=== PATIENT | female | born 1990 | race Caucasian/White ===

== ENCOUNTER 2017-08-24 04:59 | Inpatient (IN) | payer MEDICAID ==
[2017-08-24] MEDS ORDERED: Sodium Chloride 0.9% 10 ML Syringe FLUSH PRN (07:23)
[2017-08-24] MEDS: Lactated Ringers 1,000 ML IV SCH ×3 (08:11→09:25)
[2017-08-24] MEDS ORDERED: fentaNYL 100 MCG/2 ML SDV ONE (08:40)
--- NOTE | 2017-08-24 08:48 | PCM.PREANE ---
Preanesthetic Assessment - Anesthesia/Transfusion/Family Hx Anesthesia History: Prior Anesthesia Without Reaction Family History of Anesthesia Reaction: No Transfusion History: No Prior Transfusion(s) - Review of Systems General: No Symptoms Pulmonary: Cough (smoker 1ppd) Cardiovascular: No Symptoms Gastrointestinal: No Symptoms Neurological: Pre-Existing Deficit (Back pain from fall off of truck, heavy lifting at work. ) Other: Reports: None - Physical Assessment Respiratory Rate: 18 Vital Signs: Last Vital Signs Temp 36.8 C 08/24/17 07:15 Pulse 80 08/24/17 07:15 Resp 18 08/24/17 07:15 BP 119/44 L 08/24/17 07:15 Pulse Ox Height: 1.65 m Weight: 73.346 kg ASA Class: 2 Mental Status: Alert & Oriented x3 Airway Class: Mallampati = 1 Dentition: Reports: Normal Dentition Thyro-Mental Finger Breadths: 3 Mouth Opening Finger Breadths: 3 ROM/Head Extension: Full Lungs: Clear to Auscultation, Normal Respiratory Effort, Decreased Breath Sounds Cardiovascular: Regular Rate, Regular Rhythm - Lab Values: Laboratory Last Values WBC 14.65 K/mm3 (3.98-10.04) H 08/24/17 07:35 RBC 4.14 M/mm3 (3.98-5.22) 08/24/17 07:35 Hgb 13.2 gm/L (11.2-15.7) 08/24/17 07:35 Hct 38.2 % (34.1-44.9) 08/24/17 07:35 MCV 92.3 fl (79.4-94.8) 08/24/17 07:35 MCH 31.9 pg (25.6-32.2) 08/24/17 07:35 MCHC 34.6 g/dl (32.2-35.5) 08/24/17 07:35 RDW Std Deviation 45.1 fL (36.4-46.3) 08/24/17 07:35 Plt Count 213 K/mm3 (182-369) 08/24/17 07:35 MPV 10.6 fl (9.4-12.3) 08/24/17 07:35 Neut % (Auto) 72.2 % (34.0-71.1) H 08/24/17 07:35 Lymph % (Auto) 20.3 % (19.3-51.7) 08/24/17 07:35 [place] % (Auto) 5.8 % (4.7-12.5) 08/24/17 07:35 Eos % (Auto) 1.0 (0.7-5.8) 08/24/17 07:35 Baso % (Auto) 0.2 % (0.1-1.2) 08/24/17 07:35 Neut # (Auto) 10.57 K/mm3 (1.56-6.13) H 08/24/17 07:35 Lymph # (Auto) 2.98 K/mm3 (1.18-3.74) 08/24/17 07:35 [place] # (Auto) 0.85 K/mm3 (0.24-0.36) H 08/24/17 07:35 Eos # (Auto) 0.15 K/mm3 (0.04-0.36) 08/24/17 07:35 Baso # (Auto) 0.03 K/mm3 (0.01-0.08) 08/24/17 07:35 Blood Type A POSITIVE 08/24/17 07:35 Gel Antibody Screen Negative 08/24/17 07:35 - Allergies Allergies/Adverse Reactions: Allergies Allergy/AdvReac Type Severity Reaction Status Date / Time amoxicillin [Amoxicillin] Allergy Rash Verified 08/24/17 07:27 cephalexin Allergy Swelling Verified 08/24/17 07:29 iodine Allergy Rash Verified 08/24/17 07:27 levonorgestrel [From Mirena] Allergy Rash Verified 08/24/17 07:27 Penicillins Allergy Rash Verified 08/24/17 07:27 Sulfa (Sulfonamide Allergy Itching Verified 08/24/17 07:27 Antibiotics) - Acknowledgements Anesthesia Type Planned: Epidural Pt an Appropriate Candidate for the Planned Anesthesia: Yes Alternatives and Risks of Anesthesia Discussed w Pt/Guardian: Yes Pt/Guardian Understands and Agrees with Anesthesia Plan: Yes PreAnesthesia Questionnaire - Past Health History Medical/Surgical History: Denies Medical/Surgical History Gastrointestinal History: Reports: Other (See Below) Other Gastrointestinal History: abdominal wall hernia [employer] History: Reports: , Spontaneous , Other (See Below) Other OB/BYN History: abnormal pap 2007 Musculoskeletal History: Reports: Other (See Below) Other Musculoskeletal History: hip dysplasia - Infectious Disease History Infectious Disease History: Reports: Chicken Pox - Past Surgical History HEENT Surgical History: Reports: Tonsillectomy - SUBSTANCE USE Smoking Status *Q: Current Every Day Smoker Tobacco Use Within Last Twelve Months: Cigarettes Recreational Drug Use History: No - HOME MEDS Home Medications: Home Meds Vit/Iron Fumarate/FA [ Vitamin Tablet] 1 each PO DAILY [History] Fish Oil/[place]-3 Fatty Acids [Fish Oil] 500 mg PO 08/24/17 [History] Folic Acid 0.8 mg PO 08/24/17 [History] - CURRENT (IN HOUSE) MEDS Current Meds: Current Medications Lactated Ringer's (Ringers, Lactated) 1,000 mls @ 100 mls/hr IV ASDIRECTED MLILER Last Admin: 08/24/17 08:11 Dose: 999 mls/hr Oxytocin 20 unit/ Lactated (Ringer's) 1,002 mls @ 500 mls/hr IV TITRATE MILLER; Protocol Sodium Chloride (Saline Flush) 10 ml FLUSH ASDIRECTED PRN PRN Reason: Keep Vein Open Discontinued Medications Fentanyl (Sublimaze) Confirm Administered Dose 100 mcg .ROUTE .STK-MED ONE Stop: 08/24/17 08:41
[2017-08-24] MEDS ORDERED: diphenhydrAMINE 50 MG/ML SDV IVPUSH PRN (09:10)
[2017-08-24] MEDS ORDERED: Ondansetron 4 MG/2 ML SDV IVPUSH PRN (09:10)
[2017-08-24] MEDS ORDERED: ePHEDrine 50 MG/ML SDV IVPUSH PRN (09:10)
[2017-08-24] MEDS ORDERED: fentaNYL 100 MCG/2 ML SDV EPIDUR PRN (09:10)
[2017-08-24] MEDS ORDERED: Bupivacaine/fentaNYL/NS 100 ML Bag EPIDUR SCH (09:15)
--- NOTE | 2017-08-24 09:40 | PCM.LDHP ---
L&D History of Present Illness - General Date of Service: 08/24/17 Admit Problem/Dx: Patient Status Order with Admit Dx/Problem 08/24/17 07:23 Patient Status [ADT] Routine Admission Diagnosis/Problem Admission Diagnosis/Problem Source of Information: Patient History Limitations: Reports: No Limitations - History of Present Illness Introduction:: 27-year-old JEISON 08/22/17 estimated gestational age. 40 weeks and 2 days. Presented to labor and delivery complaining of contractions. Group B strep is negative. Patient did have a history of treatment for bacterial vaginosis. Blood type A+ antibody screen negative on 01/30/17 hemoglobin hematocrit 15.1/42.2 platelets 214,000. Rubella immune. Serology nonreactive. Gardnerella vaginalis collected on 01/30/17. Hepatitis B surface antigen and HIV negative. Chlamydia and GC probe negative. As noted above group B strep negative on 07/25/17. Plan delivery. Location, : Reports: Abdomen Quality: Reports: Ache, Pressure Pain Score: 8 Improves with: Reports: None Worsens with: Reports: None Associated Symptoms: Reports: N - Related Data Allergies/Adverse Reactions: Allergies Allergy/AdvReac Type Severity Reaction Status Date / Time amoxicillin [Amoxicillin] Allergy Rash Verified 08/24/17 09:17 cephalexin Allergy Swelling Verified 08/24/17 09:17 iodine Allergy Rash Verified 08/24/17 09:17 levonorgestrel [From Mirena] Allergy Rash Verified 08/24/17 09:17 Penicillins Allergy Rash Verified 08/24/17 09:17 Sulfa (Sulfonamide Allergy Itching Verified 08/24/17 09:17 Antibiotics) Home Medications: Home Meds Vit/Iron Fumarate/FA [ Vitamin Tablet] 1 each PO DAILY [History] Fish Oil/[place]-3 Fatty Acids [Fish Oil] 500 mg PO 08/24/17 [History] Folic Acid 0.8 mg PO 08/24/17 [History] Past Medical History - Past Health History Medical/Surgical History: Denies Medical/Surgical History Gastrointestinal History: Reports: Other (See Below) Other Gastrointestinal History: abdominal wall hernia [employer] History: Reports: , Spontaneous , Other (See Below) Other OB/BYN History: abnormal pap 2006 Musculoskeletal History: Reports: Other (See Below) Other Musculoskeletal History: hip dysplasia - Infectious Disease History Infectious Disease History: Reports: Chicken Pox - Past Surgical History HEENT Surgical History: Reports: Tonsillectomy Social & Family History - Tobacco Use Smoking Status *Q: Current Every Day Smoker Years of Tobacco use: 15 Packs/Tins Daily: 1 - Recreational Drug Use Recreational Drug Use: No H&P Review of Systems - Review of Systems: Review Of Systems: See Below General: Reports: No Symptoms HEENT: Reports: No Symptoms Pulmonary: Reports: No Symptoms Cardiovascular: Reports: No Symptoms Gastrointestinal: Reports: No Symptoms Genitourinary: Reports: No Symptoms Musculoskeletal: Reports: No Symptoms Skin: Reports: No Symptoms Psychiatric: Reports: No Symptoms Neurological: Reports: No Symptoms Hematologic/Lymphatic: Reports: No Symptoms Immunologic: Reports: No Symptoms L&D Exam - Exam Exam: See Below - Vital Signs Vital Signs: Last Vital Signs Temp 98.3 F 08/24/17 07:15 Pulse 80 08/24/17 07:15 Resp 18 08/24/17 08:48 BP 119/44 L 08/24/17 07:15 Pulse Ox Weight: 161 lb 11.2 oz - OB Specific Fundal Height In cm: 39 Contraction Duration (sec): 60 Contraction Frequency (min): 3 Contraction Intensity: Moderate to Strong Movement: Active Heart Tones: Present Heart Tones per Min: 135 Heart Rate (FHR) Variability: Moderate (6-25 bmp) Presentation: Vertex - Burch Score Burch Score Cervix Position: Anterior Burch Score Consistency: Soft Burch Score Effacement: >80% Burch Score Dilation: > 5 cm Burch Score Infant's Station: -1 ,0 Burch Score Total: 12 - Exam General: Alert, Oriented HEENT: Conjunctiva Clear, EACs Clear, Mucosa Moist & [place], PERRLA Neck: Supple, Trachea Midline Lungs: Clear to Auscultation, Normal Respiratory Effort Cardiovascular: Regular Rate, Regular Rhythm GI/Abdominal Exam: Normal Bowel Sounds, Soft, Non-Tender, No Organomegaly, No Distention, No Abnormal Bruit, No Mass, Pelvis Stable Genitourinary: Normal external exam, Normal bimanual exam, Normal speculum exam Extremities: Normal Inspection, Normal Range of Motion, Non-Tender, No Pedal Edema, Normal Capillary Refill Skin: Warm, Dry, Intact Neurological: Cranial Nerves Intact, Reflexes Equal Bilateral Psychiatric: Alert, Normal Affect, Normal Mood - Patient Data Lab Results Last 24 hrs: Laboratory Results - last 24 hr 08/24/17 08/24/17 Range/Units 07:35 07:35 WBC 14.65 H (3.98-10.04) K/mm3 RBC 4.14 (3.98-5.22) M/mm3 Hgb 13.2 (11.2-15.7) gm/L Hct 38.2 (34.1-44.9) % MCV 92.3 (79.4-94.8) fl MCH 31.9 (25.6-32.2) pg MCHC 34.6 (32.2-35.5) g/dl RDW Std Deviation 45.1 (36.4-46.3) fL Plt Count 213 (182-369) K/mm3 MPV 10.6 (9.4-12.3) fl Neut % (Auto) 72.2 H (34.0-71.1) % Lymph % (Auto) 20.3 (19.3-51.7) % [place] % (Auto) 5.8 (4.7-12.5) % Eos % (Auto) 1.0 (0.7-5.8) Baso % (Auto) 0.2 (0.1-1.2) % Neut # (Auto) 10.57 H (1.56-6.13) K/mm3 Lymph # (Auto) 2.98 (1.18-3.74) K/mm3 [place] # (Auto) 0.85 H (0.24-0.36) K/mm3 Eos # (Auto) 0.15 (0.04-0.36) K/mm3 Baso # (Auto) 0.03 (0.01-0.08) K/mm3 Blood Type A POSITIVE Gel Antibody Screen Negative Result Diagrams: 08/24/17 07:35 - Problem List (1) 40 weeks gestation of SNOMED Code(s): 47474215 ICD Code: Z3A.40 - 40 WEEKS GESTATION OF Status: Acute Current Visit: Yes Problem List Initiated/Reviewed/Updated: No Orders Last 24hrs: Active Orders 24 hr Category Date Time Status Patient Status [ADT] Routine ADT 08/24/17 07:23 Active Activity as Tolerated [RC] PFP Care 08/24/17 07:23 Active Communication Order [RC] ASDIRECTED Care 08/24/17 07:23 Active Heart Tones [RC] ASDIRECTED Care 08/24/17 07:24 Active Non Stress Test [ Non Stress Test] [RC] PER UNIT Care 08/24/17 07:49 Active ROUTINE Notify Provider [RC] ASDIRECTED Care 08/24/17 09:10 Active Notify Provider [RC] PFP Care 08/24/17 07:23 Active Notify Provider [RC] PRN Care 08/24/17 07:23 Active Peripheral IV Care [RC] . DIRECTED Care 08/24/17 07:24 Active Vital Signs [RC] PER UNIT ROUTINE Care 08/24/17 07:23 Active Clear Liquid Diet [DIET] Diet 08/24/17 Breakfast Active Bupivacaine/fentaNYL/NS [fentaNYL/Bupivacaine/NS 2 MCG- Med 08/24/17 09:15 Active 0.125% 100 ML] 100 ml EPIDUR ASDIRECTED Lactated Ringers [Ringers, Lactated] 1,000 ml Med 08/24/17 07:30 Active IV ASDIRECTED Ondansetron [Zofran] Med 08/24/17 09:10 Active 4 mg IVPUSH ONETIME PRN Oxytocin [Pitocin] 20 unit Med 08/24/17 07:30 Active Lactated Ringers [Ringers, Lactated] 1,000 ml IV TITRATE Sodium Chloride 0.9% [Saline Flush] Med 08/24/17 07:23 Active 10 ml FLUSH ASDIRECTED PRN diphenhydrAMINE [Benadryl] Med 08/24/17 09:10 Active 25 mg IVPUSH Q6H PRN ePHEDrine [ePHEDrine Sulfate] Med 08/24/17 09:10 Active 5 mg IVPUSH ASDIRECTED PRN fentaNYL [Sublimaze] Med 08/24/17 09:10 Active 100 mcg EPIDUR ONETIME PRN Electronic Heart Tones Ext w TOCO [WOMSER] Oth 08/24/17 07:23 Ordered Routine Electronic Heart Tones Internal [WOMSER] Per Unit Oth 08/24/17 07:23 Ordered Routine Peripheral IV Insertion Adult [OM.PC] Routine Oth 08/24/17 07:23 Ordered Resuscitation Status Routine Resus Stat 08/24/17 07:23 Ordered Medication Orders Diphenhydramine HCl (Benadryl) 25 mg IVPUSH Q6H PRN PRN Reason: Pruritis Ephedrine Sulfate (Ephedrine Sulfate) 5 mg IVPUSH ASDIRECTED PRN PRN Reason: Hypotension Fentanyl (Sublimaze) 100 mcg EPIDUR ONETIME PRN PRN Reason: Pain Fentanyl/Bupivacaine HCl (Fentanyl/Bupivacaine/Ns 2 Mcg-0.125% 100 Ml) 100 ml EPIDUR ASDIRECTED MILLER Lactated Ringer's (Ringers, Lactated) 1,000 mls @ 100 mls/hr IV ASDIRECTED MILLER Last Admin: 08/24/17 09:25 Dose: 100 mls/hr Infusion: 08/24/17 09:25 Dose: 999 mls/hr Admin: 08/24/17 08:50 Dose: 999 mls/hr Infusion: 08/24/17 08:50 Dose: 999 mls/hr Admin: 08/24/17 08:11 Dose: 999 mls/hr Oxytocin 20 unit/ Lactated (Ringer's) 1,002 mls @ 500 mls/hr IV TITRATE MILLER; Protocol Ondansetron HCl (Zofran) 4 mg IVPUSH ONETIME PRN PRN Reason: Nausea/Vomiting Sodium Chloride (Saline Flush) 10 ml FLUSH ASDIRECTED PRN PRN Reason: Keep Vein Open Assessment/Plan Comment:: Plan delivery.
[2017-08-24] MEDS ORDERED: Bupivacaine 0.25% 10 ML SDV ONE (10:00)
--- NOTE | 2017-08-24 11:53 | PCM.DEL ---
L & D Note - General Info Date of Service: 08/24/17 Mother's Due Date: 08/22/17 - Delivery Note Labor: Spontaneous Delivery Outcome: Livebirth (Female liveborn 1133 hrs. on Saturday08/24/17 left occiput anterior under epidural anesthesia no episiotomy no lacerations weight 30/1/50 grams 6 pounds 15.1 ounces Apgars 8/9 per patient's request allowed umbilical pulsation to subside before cutting cord.) Delivery Method: Spontaneous Vaginal Delivery-Single Delivery Mode: Spontaneous Presentation: Left Occiput Anterior (ASHLEY) Nuchal Cord: Present (1 reduced over the head light meconium-stained amnionic fluid) Prep: Other (Water) Anesthesia Type: Epidural (Bladder drained of approximately 300 mL of urine prior to delivery.) Amniotic Fluid Description: Meconium Stained (Lightly meconium-stained) Episiotomy Type: None Laceration: None Placenta: Intact, Spontaneous (Delivered Saturday08/24/17 at 1140 hrs. Three- vessel cord intact examined discarded) Cord: 3 Vessels Estimated Blood Loss: 250 Resuscitation Needed: No [place]: Suctioned, Bulb Syringe, Stimulated, Warmed, [place] Used, Warmer Used Provider: Murali Banerjee Score 1 min: 8 Score 5 min: 9 - General Info Date of Service: 08/24/17 Functional Status: Reports: Pain Controlled - Review of Systems General: Reports: No Symptoms HEENT: Reports: No Symptoms Pulmonary: Reports: No Symptoms Cardiovascular: Reports: No Symptoms Gastrointestinal: Reports: No Symptoms Genitourinary: Reports: No Symptoms Musculoskeletal: Reports: No Symptoms Skin: Reports: No Symptoms Neurological: Reports: No Symptoms Psychiatric: Reports: No Symptoms - Patient Data Vitals - Most Recent: Last Vital Signs Temp 98.3 F 08/24/17 07:15 Pulse 80 08/24/17 07:15 Resp 18 08/24/17 08:48 BP 119/44 L 08/24/17 07:15 Pulse Ox Weight - Most Recent: 161 lb 11.2 oz I&O - Last 24 Hours: Intake & Output 08/23/17 08/24/17 08/24/17 22:59 06:59 14:59 Intake Total 2600 Balance 2600 Lab Results Last 24 Hours: Laboratory Results - last 24 hr 08/24/17 08/24/17 Range/Units 07:35 07:35 WBC 14.65 H (3.98-10.04) K/mm3 RBC 4.14 (3.98-5.22) M/mm3 Hgb 13.2 (11.2-15.7) gm/L Hct 38.2 (34.1-44.9) % MCV 92.3 (79.4-94.8) fl MCH 31.9 (25.6-32.2) pg MCHC 34.6 (32.2-35.5) g/dl RDW Std Deviation 45.1 (36.4-46.3) fL Plt Count 213 (182-369) K/mm3 MPV 10.6 (9.4-12.3) fl Neut % (Auto) 72.2 H (34.0-71.1) % Lymph % (Auto) 20.3 (19.3-51.7) % [place] % (Auto) 5.8 (4.7-12.5) % Eos % (Auto) 1.0 (0.7-5.8) Baso % (Auto) 0.2 (0.1-1.2) % Neut # (Auto) 10.57 H (1.56-6.13) K/mm3 Lymph # (Auto) 2.98 (1.18-3.74) K/mm3 [place] # (Auto) 0.85 H (0.24-0.36) K/mm3 Eos # (Auto) 0.15 (0.04-0.36) K/mm3 Baso # (Auto) 0.03 (0.01-0.08) K/mm3 Blood Type A POSITIVE Gel Antibody Screen Negative Med Orders - Current: Current Medications Diphenhydramine HCl (Benadryl) 25 mg IVPUSH Q6H PRN PRN Reason: Pruritis Ephedrine Sulfate (Ephedrine Sulfate) 5 mg IVPUSH ASDIRECTED PRN PRN Reason: Hypotension Fentanyl (Sublimaze) 100 mcg EPIDUR ONETIME PRN PRN Reason: Pain Fentanyl/Bupivacaine HCl (Fentanyl/Bupivacaine/Ns 2 Mcg-0.125% 100 Ml) 100 ml EPIDUR ASDIRECTED MILLER Lactated Ringer's (Ringers, Lactated) 1,000 mls @ 100 mls/hr IV ASDIRECTED MILLER Last Admin: 08/24/17 09:25 Dose: 100 mls/hr Oxytocin 20 unit/ Lactated (Ringer's) 1,002 mls @ 500 mls/hr IV TITRATE MILLER; Protocol Last Admin: 08/24/17 11:33 Dose: 500 ml/hr, 500 mls/hr Ondansetron HCl (Zofran) 4 mg IVPUSH ONETIME PRN PRN Reason: Nausea/Vomiting Sodium Chloride (Saline Flush) 10 ml FLUSH ASDIRECTED PRN PRN Reason: Keep Vein Open Discontinued Medications Fentanyl (Sublimaze) Confirm Administered Dose 100 mcg .ROUTE .STK-MED ONE Stop: 08/24/17 08:41 Last Admin: 08/24/17 09:12 Dose: 100 mcg - Problem List & Annotations (1) 40 weeks gestation of SNOMED Code(s): 38582884 Code(s): Z3A.40 - 40 WEEKS GESTATION OF Status: Acute Current Visit: Yes (2) Delivery normal SNOMED Code(s): 60549087, 327404917 Code(s): O80 - ENCOUNTER FOR FULL-TERM UNCOMPLICATED DELIVERY Status: Acute Current Visit: Yes (3) Nuchal cord without compression, delivered, current hospitalization SNOMED Code(s): 87612957 Code(s): O69.81X0 - LABOR AND DEL COMP BY CORD AROUND NECK, W/O COMPRSN, UNSP Status: Acute Current Visit: Yes (4) Meconium stained amniotic fluid, delivered, current hospitalization SNOMED Code(s): 534740327 Code(s): O77.0 - LABOR AND DELIVERY COMPLICATED BY MECONIUM IN AMNIOTIC FLUID Status: Acute Current Visit: Yes - Problem List Review Problem List Initiated/Reviewed/Updated: No - My Orders Last 24 Hours: My Active Orders 08/24/17 07:23 Patient Status [ADT] Routine Activity as Tolerated [RC] PFP Communication Order [RC] ASDIRECTED Notify Provider [RC] PFP Notify Provider [RC] PRN Vital Signs [RC] PER UNIT ROUTINE Sodium Chloride 0.9% [Saline Flush] 10 ml FLUSH ASDIRECTED PRN Electronic Heart Tones Ext w TOCO [WOMSER] Routine Electronic Heart Tones Internal [WOMSER] Per Unit Routine Peripheral IV Insertion Adult [OM.PC] Routine Resuscitation Status Routine 08/24/17 07:24 Heart Tones [RC] ASDIRECTED Peripheral IV Care [RC] . DIRECTED 08/24/17 07:30 Lactated Ringers [Ringers, Lactated] 1,000 ml IV ASDIRECTED Oxytocin [Pitocin] 20 unit Lactated Ringers [Ringers, Lactated] 1,000 ml IV TITRATE 08/24/17 07:49 Non Stress Test [ Non Stress Test] [RC] PER UNIT ROUTINE 08/24/17 Breakfast Clear Liquid Diet [DIET] - Plan Plan:: Plan delivery.
[2017-08-24] MEDS ORDERED: Benzocaine/Menthol 20%-0.5% Spray 56 GM Canister TOP PRN (12:11)
[2017-08-24] MEDS ORDERED: Docusate Sodium 100 MG Cap PO PRN (12:11)
[2017-08-24] MEDS ORDERED: Lanolin 100% Cream 7 GM Tube TOP PRN (12:11)
[2017-08-24] MEDS ORDERED: Witch Hazel Medicated Pads 100/Jar TOP PRN (12:11)
[2017-08-24] MEDS ORDERED: Acetaminophen 325 MG Tab PO PRN (12:11)
[2017-08-24] MEDS: Ibuprofen 600 MG Tab PO PRN ×2 (12:43→20:45)
[2017-08-25] MEDS: Ibuprofen 600 MG Tab PO PRN ×2 (01:21→08:26)
[2017-08-25] MEDS ORDERED: Prenatal Multivitamin with Calcium/Folic Acid/Iron Tab PO SCH (09:00)
--- NOTE | 2017-08-25 10:35 | PCM.DCSUM1 ---
Discharge Summary - Hospital Course Free Text/Narrative:: [facility] LIVE L/D Delivery Note Patient Name: VIMAL COX Date of : 86 Patient Status: Inpatient Attending Provider: Murali Banerjee Date: 08/24/17 11:48 Initialization Date: 08/24/17 11:48 L & D Note - General Info Date of Service: 08/24/17 Mother's Due Date: 08/22/17 - Delivery Note Labor: Spontaneous Delivery Outcome: Livebirth (Female liveborn 1133 hrs. on Saturday08/24/17 left occiput anterior under epidural anesthesia no episiotomy no lacerations weight 30//50 grams 6 pounds 15.1 ounces Apgars 8/9 per patient's request allowed umbilical pulsation to subside before cutting cord.) Infant Delivery Method: Spontaneous Vaginal Delivery-Single Infant Delivery Mode: Spontaneous Presentation: Left Occiput Anterior (ASHLEY) Nuchal Cord: Present (1 reduced over the head light meconium-stained amnionic fluid) Prep: Other (Water) Anesthesia Type: Epidural (Bladder drained of approximately 300 mL of urine prior to delivery.) Amniotic Fluid Description: Meconium Stained (Lightly meconium-stained) Episiotomy Type: None Laceration: None Placenta: Intact, Spontaneous (Delivered Saturday08/24/17 at 1140 hrs. Three- vessel cord intact examined discarded) Cord: 3 Vessels Estimated Blood Loss: 250 Resuscitation Needed: No : Suctioned, Bulb Syringe, Stimulated, Warmed, Campbell Used, Warmer Used Provider: Murali Banerjee Score 1 min: 8 Score 5 min: 9 - General Info Date of Service: 08/24/17 Functional Status: Reports: Pain Controlled - Review of Systems General: Reports: No Symptoms HEENT: Reports: No Symptoms Pulmonary: Reports: No Symptoms Cardiovascular: Reports: No Symptoms Gastrointestinal: Reports: No Symptoms Genitourinary: Reports: No Symptoms Musculoskeletal: Reports: No Symptoms Skin: Reports: No Symptoms Neurological: Reports: No Symptoms Psychiatric: Reports: No Symptoms - Patient Data Vitals - Most Recent: Last Vital Signs Temp 98.3 F 08/24/17 07:15 Pulse 80 08/24/17 07:15 Resp 18 08/24/17 08:48 BP 119/44 L 08/24/17 07:15 Pulse Ox Weight - Most Recent: 161 lb 11.2 oz I&O - Last 24 Hours: Intake & Output 08/23/17 08/24/17 08/24/17 22:59 06:59 14:59 Intake Total 2600 Balance 2600 Lab Results Last 24 Hours: Laboratory Results - last 24 hr 08/24/17 08/24/17 Range/Units 07:35 07:35 WBC 14.65 H (3.98-10.04) K/mm3 RBC 4.14 (3.98-5.22) M/mm3 Hgb 13.2 (11.2-15.7) gm/L Hct 38.2 (34.1-44.9) % MCV 92.3 (79.4-94.8) fl MCH 31.9 (25.6-32.2) pg MCHC 34.6 (32.2-35.5) g/dl RDW Std Deviation 45.1 (36.4-46.3) fL Plt Count 213 (182-369) K/mm3 MPV 10.6 (9.4-12.3) fl Neut % (Auto) 72.2 H (34.0-71.1) % Lymph % (Auto) 20.3 (19.3-51.7) % [place] % (Auto) 5.8 (4.7-12.5) % Eos % (Auto) 1.0 (0.7-5.8) Baso % (Auto) 0.2 (0.1-1.2) % Neut # (Auto) 10.57 H (1.56-6.13) K/mm3 Lymph # (Auto) 2.98 (1.18-3.74) K/mm3 [place] # (Auto) 0.85 H (0.24-0.36) K/mm3 Eos # (Auto) 0.15 (0.04-0.36) K/mm3 Baso # (Auto) 0.03 (0.01-0.08) K/mm3 Blood Type A POSITIVE Gel Antibody Screen Negative Med Orders - Current: Current Medications Diphenhydramine HCl (Benadryl) 25 mg IVPUSH Q6H PRN PRN Reason: Pruritis Ephedrine Sulfate (Ephedrine Sulfate) 5 mg IVPUSH ASDIRECTED PRN PRN Reason: Hypotension Fentanyl (Sublimaze) 100 mcg EPIDUR ONETIME PRN PRN Reason: Pain Fentanyl/Bupivacaine HCl (Fentanyl/Bupivacaine/Ns 2 Mcg-0.125% 100 Ml) 100 ml EPIDUR ASDIRECTED MILLER Lactated Ringer's (Ringers, Lactated) 1,000 mls @ 100 mls/hr IV ASDIRECTED MILLER Last Admin: 08/24/17 09:25 Dose: 100 mls/hr Oxytocin 20 unit/ Lactated (Ringer's) 1,002 mls @ 500 mls/hr IV TITRATE MILLER; Protocol Last Admin: 08/24/17 11:33 Dose: 500 ml/hr, 500 mls/hr Ondansetron HCl (Zofran) 4 mg IVPUSH ONETIME PRN PRN Reason: Nausea/Vomiting Sodium Chloride (Saline Flush) 10 ml FLUSH ASDIRECTED PRN PRN Reason: Keep Vein Open Discontinued Medications Fentanyl (Sublimaze) Confirm Administered Dose 100 mcg .ROUTE .STK-MED ONE Stop: 08/24/17 08:41 Last Admin: 08/24/17 09:12 Dose: 100 mcg - Problem List & Annotations (1) 40 weeks gestation of SNOMED Code(s): 46458500 Code(s): Z3A.40 - 40 WEEKS GESTATION OF Status: Acute Current Visit: Yes (2) Delivery normal SNOMED Code(s): 25586404, 954750798 Code(s): O80 - ENCOUNTER FOR FULL-TERM UNCOMPLICATED DELIVERY Status: Acute Current Visit: Yes (3) Nuchal cord without compression, delivered, current hospitalization SNOMED Code(s): 29135551 Code(s): O69.81X0 - LABOR AND DEL COMP BY CORD AROUND NECK, W/O COMPRSN, UNSP Status: Acute Current Visit: Yes (4) Meconium stained amniotic fluid, delivered, current hospitalization SNOMED Code(s): 586442188 Code(s): O77.0 - LABOR AND DELIVERY COMPLICATED BY MECONIUM IN AMNIOTIC FLUID Status: Acute Current Visit: Yes - Problem List Review Problem List Initiated/Reviewed/Updated: No - My Orders Last 24 Hours: My Active Orders 08/24/17 07:23 Patient Status [ADT] Routine Activity as Tolerated [RC] PFP Communication Order [RC] ASDIRECTED Notify Provider [RC] PFP Notify Provider [RC] PRN Vital Signs [RC] PER UNIT ROUTINE Sodium Chloride 0.9% [Saline Flush] 10 ml FLUSH ASDIRECTED PRN Electronic Heart Tones Ext w TOCO [WOMSER] Routine Electronic Heart Tones Internal [WOMSER] Per Unit Routine Peripheral IV Insertion Adult [OM.PC] Routine Resuscitation Status Routine 08/24/17 07:24 Heart Tones [RC] ASDIRECTED Peripheral IV Care [RC] . DIRECTED 08/24/17 07:30 Lactated Ringers [Ringers, Lactated] 1,000 ml IV ASDIRECTED Oxytocin [Pitocin] 20 unit Lactated Ringers [Ringers, Lactated] 1,000 ml IV TITRATE 08/24/17 07:49 Non Stress Test [ Non Stress Test] [RC] PER UNIT ROUTINE 08/24/17 Breakfast Clear Liquid Diet [DIET] - Plan Plan:: Plan delivery. HPI Initial Comments: [facility] LIVE L/D Delivery Note Patient Name: VIMAL COX Date of : 86 Patient Status: Inpatient Attending Provider: Murali Banerjee Date: 08/24/17 11:48 Initialization Date: 08/24/17 11:48 L & D Note - General Info Date of Service: 08/24/17 Mother's Due Date: 08/22/17 - Delivery Note Labor: Spontaneous Delivery Outcome: Livebirth (Female liveborn 1133 hrs. on Saturday08/24/17 left occiput anterior under epidural anesthesia no episiotomy no lacerations weight 30/1/50 grams 6 pounds 15.1 ounces Apgars 8/9 per patient's request allowed umbilical pulsation to subside before cutting cord.) Delivery Method: Spontaneous Vaginal Delivery-Single Delivery Mode: Spontaneous Presentation: Left Occiput Anterior (ASHLEY) Nuchal Cord: Present (1 reduced over the head light meconium-stained amnionic fluid) Prep: Other (Water) Anesthesia Type: Epidural (Bladder drained of approximately 300 mL of urine prior to delivery.) Amniotic Fluid Description: Meconium Stained (Lightly meconium-stained) Episiotomy Type: None Laceration: None Placenta: Intact, Spontaneous (Delivered Saturday08/24/17 at 1140 hrs. Three- vessel cord intact examined discarded) Cord: 3 Vessels Estimated Blood Loss: 250 Resuscitation Needed: No : Suctioned, Bulb Syringe, Stimulated, Warmed, Campbell Used, Warmer Used Provider: Murali Banerjee Score 1 min: 8 Score 5 min: 9 - General Info Date of Service: 08/24/17 Functional Status: Reports: Pain Controlled - Review of Systems General: Reports: No Symptoms HEENT: Reports: No Symptoms Pulmonary: Reports: No Symptoms Cardiovascular: Reports: No Symptoms Gastrointestinal: Reports: No Symptoms Genitourinary: Reports: No Symptoms Musculoskeletal: Reports: No Symptoms Skin: Reports: No Symptoms Neurological: Reports: No Symptoms Psychiatric: Reports: No Symptoms - Patient Data Vitals - Most Recent: Last Vital Signs Temp 98.3 F 08/24/17 07:15 Pulse 80 08/24/17 07:15 Resp 18 08/24/17 08:48 BP 119/44 L 08/24/17 07:15 Pulse Ox Weight - Most Recent: 161 lb 11.2 oz I&O - Last 24 Hours: Intake & Output 08/23/17 08/24/17 08/24/17 22:59 06:59 14:59 Intake Total 2600 Balance 2600 Lab Results Last 24 Hours: Laboratory Results - last 24 hr 08/24/17 08/24/17 Range/Units 07:35 07:35 WBC 14.65 H (3.98-10.04) K/mm3 RBC 4.14 (3.98-5.22) M/mm3 Hgb 13.2 (11.2-15.7) gm/L Hct 38.2 (34.1-44.9) % MCV 92.3 (79.4-94.8) fl MCH 31.9 (25.6-32.2) pg MCHC 34.6 (32.2-35.5) g/dl RDW Std Deviation 45.1 (36.4-46.3) fL Plt Count 213 (182-369) K/mm3 MPV 10.6 (9.4-12.3) fl Neut % (Auto) 72.2 H (34.0-71.1) % Lymph % (Auto) 20.3 (19.3-51.7) % [place] % (Auto) 5.8 (4.7-12.5) % Eos % (Auto) 1.0 (0.7-5.8) Baso % (Auto) 0.2 (0.1-1.2) % Neut # (Auto) 10.57 H (1.56-6.13) K/mm3 Lymph # (Auto) 2.98 (1.18-3.74) K/mm3 [place] # (Auto) 0.85 H (0.24-0.36) K/mm3 Eos # (Auto) 0.15 (0.04-0.36) K/mm3 Baso # (Auto) 0.03 (0.01-0.08) K/mm3 Blood Type A POSITIVE Gel Antibody Screen Negative Med Orders - Current: Current Medications Diphenhydramine HCl (Benadryl) 25 mg IVPUSH Q6H PRN PRN Reason: Pruritis Ephedrine Sulfate (Ephedrine Sulfate) 5 mg IVPUSH ASDIRECTED PRN PRN Reason: Hypotension Fentanyl (Sublimaze) 100 mcg EPIDUR ONETIME PRN PRN Reason: Pain Fentanyl/Bupivacaine HCl (Fentanyl/Bupivacaine/Ns 2 Mcg-0.125% 100 Ml) 100 ml EPIDUR ASDIRECTED MILLER Lactated Ringer's (Ringers, Lactated) 1,000 mls @ 100 mls/hr IV ASDIRECTED MILLER Last Admin: 08/24/17 09:25 Dose: 100 mls/hr Oxytocin 20 unit/ Lactated (Ringer's) 1,002 mls @ 500 mls/hr IV TITRATE MILLER; Protocol Last Admin: 08/24/17 11:33 Dose: 500 ml/hr, 500 mls/hr Ondansetron HCl (Zofran) 4 mg IVPUSH ONETIME PRN PRN Reason: Nausea/Vomiting Sodium Chloride (Saline Flush) 10 ml FLUSH ASDIRECTED PRN PRN Reason: Keep Vein Open Discontinued Medications Fentanyl (Sublimaze) Confirm Administered Dose 100 mcg .ROUTE .STK-MED ONE Stop: 08/24/17 08:41 Last Admin: 08/24/17 09:12 Dose: 100 mcg - Problem List & Annotations (1) 40 weeks gestation of SNOMED Code(s): 20669688 Code(s): Z3A.40 - 40 WEEKS GESTATION OF Status: Acute Current Visit: Yes (2) Delivery normal SNOMED Code(s): 03084301, 870635134 Code(s): O80 - ENCOUNTER FOR FULL-TERM UNCOMPLICATED DELIVERY Status: Acute Current Visit: Yes (3) Nuchal cord without compression, delivered, current hospitalization SNOMED Code(s): 59079361 Code(s): O69.81X0 - LABOR AND DEL COMP BY CORD AROUND NECK, W/O COMPRSN, UNSP Status: Acute Current Visit: Yes (4) Meconium stained amniotic fluid, delivered, current hospitalization SNOMED Code(s): 255654932 Code(s): O77.0 - LABOR AND DELIVERY COMPLICATED BY MECONIUM IN AMNIOTIC FLUID Status: Acute Current Visit: Yes - Problem List Review Problem List Initiated/Reviewed/Updated: No - My Orders Last 24 Hours: My Active Orders 08/24/17 07:23 Patient Status [ADT] Routine Activity as Tolerated [RC] PFP Communication Order [RC] ASDIRECTED Notify Provider [RC] PFP Notify Provider [RC] PRN Vital Signs [RC] PER UNIT ROUTINE Sodium Chloride 0.9% [Saline Flush] 10 ml FLUSH ASDIRECTED PRN Electronic Heart Tones Ext w TOCO [WOMSER] Routine Electronic Heart Tones Internal [WOMSER] Per Unit Routine Peripheral IV Insertion Adult [OM.PC] Routine Resuscitation Status Routine 08/24/17 07:24 Heart Tones [RC] ASDIRECTED Peripheral IV Care [RC] . DIRECTED 08/24/17 07:30 Lactated Ringers [Ringers, Lactated] 1,000 ml IV ASDIRECTED Oxytocin [Pitocin] 20 unit Lactated Ringers [Ringers, Lactated] 1,000 ml IV TITRATE 08/24/17 07:49 Non Stress Test [ Non Stress Test] [RC] PER UNIT ROUTINE 08/24/17 Breakfast Clear Liquid Diet [DIET] - Plan Plan:: Plan delivery. Brief History: [facility] LIVE . L/D Delivery Note. [facility] [id number]. Date of : Patient Status: Inpatient. [facility] [id number]. Date: 08/24/17 11:48Initialization Date: 08/24/17 11:48. L & D Note. - General Info. Date of Service: 08/24/17. Mother's Due Date: 08/22/17. - Delivery Note. Labor: Spontaneous. Delivery Outcome: Livebirth ( Female liveborn 1133 hrs. on Saturday08/24/17 left occiput anterior under epidural anesthesia no episiotomy no lacerations weight 30/1/50 grams 6 pounds 15.1 ounces Apgars 8/9 per patient's request allowed umbilical pulsation to subside before cutting cord.). Infant Delivery Method: Spontaneous Vaginal Delivery-Single. Infant Delivery Mode: Spontaneous. Presentation: Left Occiput Anterior (ASHLEY). Nuchal Cord: Present (1 reduced over the head light meconium-stained amnionic fluid). Prep: Other (Water). Anesthesia Type: Epidural (Bladder drained of approximately 300 mL of urine prior to delivery.). Amniotic Fluid Description: Meconium Stained (Lightly meconium-stained). Episiotomy Type: None. Laceration: None. Placenta: Intact, Spontaneous ( Delivered Saturday08/24/17 at 1140 hrs. Three-vessel cord intact examined discarded). Cord: 3 Vessels. Estimated Blood Loss: 250. Resuscitation Needed : No. [place]: Suctioned, Bulb Syringe, Stimulated, Warmed, Campbell Used, Warmer Used. Provider: Murali Banerjee. Score 1 min: 8. Score 5 min: 9. - General Info. Date of Service: 08/24/17. Functional Status: Reports: Pain Controlled. - Review of Systems. General: Reports: No Symptoms. HEENT: Reports: No Symptoms. Pulmonary: Reports: No Symptoms. Cardiovascular: Reports: No Symptoms. Gastrointestinal: Reports: No Symptoms. Genitourinary: Reports: No Symptoms. Musculoskeletal: Reports: No Symptoms. Skin: Reports: No Symptoms. Neurological: Reports: No Symptoms. Psychiatric: Reports: No Symptoms. - Patient Data. Vitals - Most Recent: Last Vital Signs. Temp 98.3 F 08/24/17 07:15. Pulse 80 08/24/17 07:15. Resp 18 08:48. BP 119/44 L 08/24/17 07:15. Pulse Ox. Weight - Most Recent: 161 lb 11.2 oz. I&O - Last 24 Hours: Intake & Output. 08/23/1804. 22: [id number]:[id number]:[id number]. Intake [id number]. [id number]. Lab Results Last 24 Hours: Laboratory Results - last 24 hr. 08/24/1804/26/18Range/Units. 07:3507:35. WBC 14.65 H (3.98-10.04) K/mm3. RBC 4.14 (3.98-5.22) M/mm3. Hgb 13.2 (11.2- 15.7) gm/L. Hct 38.2 (34.1-44.9) %. MCV 92.3 (79.4-94.8) fl. MCH 31.9 ( 25.6-32.2) pg. MCHC 34.6 (32.2-35.5) g/dl. RDW Std Deviation 45.1 (36.4-46.3 ) fL. Plt Count 213 (182-369) K/mm3. MPV 10.6 (9.4-12.3) fl. Neut % (Auto ) 72.2 H (34.0-71.1) %. Lymph % (Auto) 20.3 (19.3-51.7) %. [place] % (Auto) 5.8 (4.7-12.5) %. Eos % (Auto) 1.0 (0.7-5.8). Baso % (Auto) 0.2 (0.1-1.2) % . Neut # (Auto) 10.57 H (1.56-6.13) K/mm3. Lymph # (Auto) 2.98 (1.18-3.74) K /mm3. [place] # (Auto) 0.85 H (0.24-0.36) K/mm3. Eos # (Auto) 0.15 (0.04-0.36) K/mm3. Baso # (Auto) 0.03 (0.01-0.08) K/mm3. Blood Type A POSITIVE. Gel Antibody Screen Negative. Med Orders - Current: Current Medications. Diphenhydramine HCl (Benadryl) 25 mg IVPUSH Q6H PRN. PRN Reason: Pruritis. Ephedrine Sulfate (Ephedrine Sulfate) 5 mg IVPUSH ASDIRECTED PRN. PRN Reason: Hypotension. Fentanyl (Sublimaze) 100 mcg EPIDUR ONETIME PRN. PRN Reason: Pain. Fentanyl/Bupivacaine HCl (Fentanyl/Bupivacaine/Ns 2 Mcg-0.125% 100 Ml) 100 ml EPIDUR ASDIRECTED MILLER. Lactated Ringer's (Ringers, Lactated) 1,000 mls @ 100 mls/hr IV ASDIRECTED MILLER. Last Admin: 08/24/17 09:25 Dose: 100 mls/hr. Oxytocin 20 unit/ Lactated (Ringer's) 1,002 mls @ 500 mls/hr IV TITRATE MILLER; Protocol. Last Admin: 08/24/17 11:33 Dose: 500 ml/hr, 500 mls/hr. Ondansetron HCl (Zofran) 4 mg IVPUSH ONETIME PRN. PRN Reason: Nausea/ Vomiting. Sodium Chloride (Saline Flush) 10 ml FLUSH ASDIRECTED PRN. PRN Reason: Keep Vein Open. Discontinued Medications. Fentanyl (Sublimaze) Confirm Administered Dose 100 mcg .ROUTE .STK-MED ONE. Stop: 08/24/17 08:41. Last Admin: 08/24/17 09:12 Dose: 100 mcg. - Problem List & Annotations. (1) 40 weeks gestation of . SNOMED Code(s): 70609617. Code(s): Z3A.40 - 40 WEEKS GESTATION OF Status: Acute Current Visit: Yes. (2) Delivery normal. SNOMED Code(s): 89912751, 380425061. Code(s): O80 - ENCOUNTER FOR FULL-TERM UNCOMPLICATED DELIVERY Status: Acute Current Visit: Yes. (3) Nuchal cord without compression, delivered, current hospitalization. SNOMED Code(s): 17141159. Code(s): O69.81X0 - LABOR AND DEL COMP BY CORD AROUND NECK, W/O COMPRSN, UNSP Status: Acute Current Visit: Yes. (4) Meconium stained amniotic fluid, delivered, current hospitalization. SNOMED Code(s): 892905636. Code(s): O77.0 - LABOR AND DELIVERY COMPLICATED BY MECONIUM IN AMNIOTIC FLUID Status: Acute Current Visit: Yes. - Problem List Review. Problem List Initiated/Reviewed/Updated: No. - My Orders. Last 24 Hours: My Active Orders. 08/24/17 07:23. Patient Status [ADT] Routine. Activity as Tolerated [RC] PFP. Communication Order [RC] ASDIRECTED. Notify Provider [RC] PFP. Notify Provider [RC] PRN. Vital Signs [RC] PER UNIT ROUTINE. Sodium Chloride 0.9% [Saline Flush] 10 ml FLUSH ASDIRECTED PRN. Electronic Heart Tones Ext w TOCO [WOMSER] Routine. Electronic Heart Tones Internal [WOMSER] Per Unit Routine. Peripheral IV Insertion Adult [ OM.PC] Routine. Resuscitation Status Routine. 08/24/17 07:24. Heart Tones [RC] ASDIRECTED. Peripheral IV Care [RC] . DIRECTED. 08/24/17 07:30. Lactated Ringers [Ringers, Lactated] 1,000 ml IV ASDIRECTED. Oxytocin [Pitocin ] 20 unit Lactated Ringers [Ringers, Lactated] 1,000 ml IV TITRATE. 08/24/17 07:49. Non Stress Test [ Non Stress Test] [RC] PER UNIT ROUTINE. Breakfast. Clear Liquid Diet [DIET]. - Plan. Plan:: Plan delivery. - Discharge Data Discharge Date: 08/25/17 Discharge Disposition: Home, Self-Care 01 Condition: Good - Discharge Diagnosis/Problem(s) (1) 40 weeks gestation of SNOMED Code(s): 92014102 ICD Code: Z3A.40 - 40 WEEKS GESTATION OF Status: Acute Current Visit: Yes (2) Delivery normal SNOMED Code(s): 46538030, 738303261 ICD Code: O80 - ENCOUNTER FOR FULL-TERM UNCOMPLICATED DELIVERY Status: Acute Current Visit: Yes (3) Nuchal cord without compression, delivered, current hospitalization SNOMED Code(s): 81264195 ICD Code: O69.81X0 - LABOR AND DEL COMP BY CORD AROUND NECK, W/O COMPRSN, UNSP Status: Acute Current Visit: Yes (4) Meconium stained amniotic fluid, delivered, current hospitalization SNOMED Code(s): 278354522 ICD Code: O77.0 - LABOR AND DELIVERY COMPLICATED BY MECONIUM IN AMNIOTIC FLUID Status: Acute Current Visit: Yes - Patient Summary/Data Complications: None Consults: None Hospital Course: Uneventful - Patient Instructions Diet: Regular Diet as Tolerated Driving: Do Not Drive (48 hours) Showering/Bathing: May Shower Notify Provider of: Fever, Increased Pain, Swelling and Redness, Drainage, Nausea and/or Vomiting - Discharge Plan Home Medications: Home Meds Vit/Iron Fumarate/FA [ Vitamin Tablet] 1 each PO DAILY [History] Fish Oil/[place]-3 Fatty Acids [Fish Oil] 500 mg PO 08/24/17 [History] Folic Acid 0.8 mg PO 08/24/17 [History] Acetaminophen [Tylenol] 650 mg PO Q4H PRN tablet 08/25/17 [Rx] Benzocaine/Menthol [Dermoplast Pain Relief [place]] 1 spray TOP ASDIRECTED PRN canister 08/25/17 [Rx] Docusate Sodium [Colace] 100 mg PO BID PRN cap 08/25/17 [Rx] Ibuprofen [Motrin] 600 mg PO Q4H PRN tablet 08/25/17 [Rx] Referrals: Ziyad Whelan MD [Physician] - (Patient had appointment Saturday to see Dr. Whelan for OB check and will go ahead and see him as a check that day.) - Discharge Summary/Plan Comment DC Time >30 min.: No - Patient Data Vitals - Most Recent: Last Vital Signs Temp 98.1 F 08/25/17 08:46 Pulse 93 08/25/17 08:29 Resp 15 08/25/17 08:29 BP 121/64 08/25/17 08:29 Pulse Ox 96 08/25/17 08:29 Weight - Most Recent: 161 lb 11.2 oz I&O - Last 24 hours: Intake & Output 08/24/17 08/25/17 08/25/17 22:59 06:59 14:59 Intake Total 240 Balance 240 Lab Results - Last 24 hrs: Laboratory Results - last 24 hr 08/25/17 Range/Units 06:22 WBC 11.09 H (3.98-10.04) K/mm3 RBC 3.55 L (3.98-5.22) M/mm3 Hgb 11.4 (11.2-15.7) gm/L Hct 33.5 L (34.1-44.9) % MCV 94.4 (79.4-94.8) fl MCH 32.1 (25.6-32.2) pg MCHC 34.0 (32.2-35.5) g/dl RDW Std Deviation 45.5 (36.4-46.3) fL Plt Count 191 (182-369) K/mm3 MPV 11.1 (9.4-12.3) fl Neut % (Auto) 61.0 (34.0-71.1) % Lymph % (Auto) 30.8 (19.3-51.7) % [place] % (Auto) 6.3 (4.7-12.5) % Eos % (Auto) 1.3 (0.7-5.8) Baso % (Auto) 0.2 (0.1-1.2) % Neut # (Auto) 6.77 H (1.56-6.13) K/mm3 Lymph # (Auto) 3.42 (1.18-3.74) K/mm3 [place] # (Auto) 0.70 H (0.24-0.36) K/mm3 Eos # (Auto) 0.14 (0.04-0.36) K/mm3 Baso # (Auto) 0.02 (0.01-0.08) K/mm3 Med Orders - Current: Current Medications Acetaminophen (Tylenol) 650 mg PO Q4H PRN PRN Reason: mild pain or fever Benzocaine/Menthol (Dermoplast Pain Relief [place]) 0 gm TOP ASDIRECTED PRN PRN Reason: Perineal Comfort Measure Docusate Sodium (Colace) 100 mg PO BID PRN PRN Reason: Constipation Emollient Ointment (Lansinoh Hpa) 0 gm TOP ASDIRECTED PRN PRN Reason: Sore Nipples Ibuprofen (Motrin) 600 mg PO Q4H PRN PRN Reason: Mild pain or fever Last Admin: 08/25/17 08:26 Dose: 600 mg Prenat Multivit/[place]/Iron/Folic Ac ( Plus Iron) 1 each PO DAILY MILLER Last Admin: 08/25/17 08:26 Dose: 1 each [place] (Tucks) 1 pad TOP ASDIRECTED PRN PRN Reason: Hemorrhoid pain Last Admin: 08/24/17 12:42 Dose: 1 jar Discontinued Medications Bupivacaine HCl (Sensorcaine-Mpf 0.25%) 10 ml .ROUTE [email or web address] ONE Stop: 08/24/17 10:01 Diphenhydramine HCl (Benadryl) 25 mg IVPUSH Q6H PRN PRN Reason: Pruritis Ephedrine Sulfate (Ephedrine Sulfate) 5 mg IVPUSH ASDIRECTED PRN PRN Reason: Hypotension Fentanyl (Sublimaze) Confirm Administered Dose 100 mcg .ROUTE [email or web address] ONE Stop: 08/24/17 08:41 Last Admin: 08/24/17 09:12 Dose: 100 mcg Fentanyl (Sublimaze) 100 mcg EPIDUR ONETIME PRN PRN Reason: Pain Fentanyl/Bupivacaine HCl (Fentanyl/Bupivacaine/Ns 2 Mcg-0.125% 100 Ml) 100 ml EPIDUR ASDIRECTED MILLER Lactated Ringer's (Ringers, Lactated) 1,000 mls @ 100 mls/hr IV ASDIRECTED MILLER Last Admin: 08/24/17 09:25 Dose: 100 mls/hr Oxytocin 20 unit/ Lactated (Ringer's) 1,002 mls @ 500 mls/hr IV TITRATE MILLER; Protocol Last Admin: 08/24/17 11:33 Dose: 500 ml/hr, 500 mls/hr Ondansetron HCl (Zofran) 4 mg IVPUSH ONETIME PRN PRN Reason: Nausea/Vomiting Sodium Chloride (Saline Flush) 10 ml FLUSH ASDIRECTED PRN PRN Reason: Keep Vein Open
[2017-08-25 13:04] VITALS: BP 124/73
--- NOTE | 2017-08-26 16:07 | PCM48HPAN ---
Post Anesthesia Note - EVALUATION WITHIN 48HRS OF ANESTHETIC Vital Signs in Normal Range: Yes Patient Participated in Evaluation: Yes Respiratory Function Stable: Yes Airway Patent: Yes Cardiovascular Function Stable: Yes Hydration Status Stable: Yes Pain Control Satisfactory: Yes Nausea and Vomiting Control Satisfactory: Yes Mental Status Recovered: Yes
== END 2017-08-25 14:30 | disposition home or self-care (01) | DRG 775 ==
LOC: JD.OBCHECK 04:59 → JD.OB 04:59 → JD.OBCHECK 07:23 → JD.OB 07:23 → OBSVTOIN 11:33 → JD.MS 11:34 → JD.OB 21:06
PROVIDERS: ADMIT Obstetrics & Gynecology; ATTEND Obstetrics & Gynecology
PROC: 10E0XZZ Delivery of Products of Conception, External Approach (ICD-10-PCS; principal; 2017-08-24)
PROC: 00HU33Z Insertion of Infusion Device into Spinal Canal, Percutaneous Approach (ICD-10-PCS; 2017-08-24)
PROC: 3E0R3BZ Introduction of Anesthetic Agent into Spinal Canal, Percutaneous Approach (ICD-10-PCS; 2017-08-24)
DX: O77.0 Labor and delivery complicated by meconium in amniotic fluid (principal); O69.81X0 Labor and delivery complicated by cord around neck, without compression, not applicable or unspecified; O99.334 Smoking (tobacco) complicating childbirth; Z3A.40 40 weeks gestation of pregnancy; Z37.0 Single live birth; Z99.0 Dependence on aspirator; Z88.1 Allergy status to other antibiotic agents; Z88.2 Allergy status to sulfonamides; Z88.8 Allergy status to other drugs, medicaments and biological substances
CPT/HCPCS: 36415; 59025; 59409; 85025; 86850; 86900; 86901; A9270-GY; J2590; J3010; J7120